=== PATIENT | female | born 1995 | race Caucasian/White ===

== ENCOUNTER 2017-03-20 08:32 | Emergency (ER) | payer OTHER ==
[~2017-03-20] VITALS: Ht 162.6 cm; Wt 50.3 kg
[2017-03-20 08:42] VITALS: BP 105/69
--- NOTE | 2017-03-20 08:46 | NUR ---
Patient to bed 07.
--- NOTE | 2017-03-20 09:02 | NUR ---
PATIENT LEFT WITHOUT BEING SEEN BY DR. HUNTER. NO FURTHER CARE PROVIDED FOR PATIENT.
== END 2017-03-20 09:02 | disposition left against medical advice (07) ==
LOC: MED 08:32
CPT/HCPCS: 99281

== ENCOUNTER 2019-07-05 02:20 | Emergency (ER) | payer OTHER ==
[~2019-07-05] VITALS: Ht 162.6 cm; Wt 52.2 kg
[2019-07-05 02:26] VITALS: BP 130/86
--- NOTE | 2019-07-05 02:45 | NUR ---
24 YO F BIB SELF PRESENTS TO ED C/O 04/01 TOOTHACHE TO LEFT LOWER MOLAR. MOUTH SWELLING NOTED. PT STATES "I THINK IT IS INFECTED". DENIES FEVER/CHILLS. -- PT AWAKE, A/O X 4. CALM, COOPERATIVE. ANSWERS QUESTIONS IN CLEAR, COMPLETE SENTENCES. BEHAVIOR AGE APPROPRIATE. -- SKIN PINK, WARM, DRY. BREATHING EVEN, UNLABORED. PMH-- DENIES RX-- DENIES
--- NOTE | 2019-07-05 03:14 | NUR ---
DR. FELIPE BEDSIDE EVALUATING PT
[2019-07-05] MEDS ORDERED: AMOXICILLIN 500 MG CAP PO ONE (03:15)
[2019-07-05] MEDS ORDERED: MORPHINE SULFATE 2 MG/ML SYR IM ONE (03:15)
[2019-07-05 03:41] VITALS: BP 130/86
--- NOTE | 2019-07-05 03:41 | NUR ---
Patient discharged with v/s stable. Written and verbal after care instructions given and explained. Patient alert, oriented and verbalized understanding of instructions. Ambulatory with steady gait. All questions addressed prior to discharge. ID band removed. Patient advised to follow up with PMD. Rx of Amoxicillin, Tramadol and Motrin given. Patient educated on indication of medication including possible reaction and side effects. Opportunity to ask questions provided and answered.
== END 2019-07-05 03:41 | disposition home or self-care (01) ==
LOC: MED 02:20
DX: K04.7 Periapical abscess without sinus (principal); I10 Essential (primary) hypertension; R00.0 Tachycardia, unspecified
CPT/HCPCS: 96372; 99283; J2270

== ENCOUNTER 2019-11-08 00:04 | Emergency (ER) | payer OTHER ==
[~2019-11-08] VITALS: Ht 162.6 cm; Wt 54.4 kg
[2019-11-08 00:10] VITALS: BP 118/75
--- NOTE | 2019-11-08 00:13 | NUR ---
TO LOBBY A/W BED AMBULATORY
[2019-11-08 02:31] VITALS: BP 118/75
--- NOTE | 2019-11-08 02:31 | NUR ---
PATIENT LEFT WITHOUT BEING SEEN BY DR. CONTEH. NO FURTHER CARE PROVIDED FOR PATIENT.
--- NOTE | 2019-11-08 02:31 | NUR ---
PT WAS CALLED FROM LOBBY, NO ANSWER, LWBS
== END 2019-11-08 02:31 | disposition left against medical advice (07) ==
LOC: MED 00:04
DX: M79.671 Pain in right foot (principal); Z53.21 Procedure and treatment not carried out due to patient leaving prior to being seen by health care provider
CPT/HCPCS: 73630; 99281

== ENCOUNTER 2020-09-14 15:27 | Emergency (ER) | payer MEDICAID ==
[~2020-09-14] VITALS: Ht 162.6 cm; Wt 52.2 kg
[2020-09-14 15:53] VITALS: BP 123/79
--- NOTE | 2020-09-14 15:55 | NUR ---
PT SENT TO LOBBY TO WAIT FOR AVAILABLE BED.
[2020-09-14] MEDS ORDERED: cefTRIAXone 1,000 MG in LIDOCAINE MPF 1% 2.1 ML IM ONE (16:20)
[2020-09-14] MEDS ORDERED: LIDOCAINE MPF 1% 10 MG/ML VIAL INJ ONE (16:20)
[2020-09-14] MEDS ORDERED: KETOROLAC 60 MG/2 ML VIAL IM ONE ×2 (16:20→17:33)
[2020-09-14] MEDS ORDERED: cefTRIAXone 1,000 MG VIAL ONE (17:32)
[2020-09-14] MEDS ORDERED: LIDOCAINE MPF 1% 5 ML ONE (17:33)
== END 2020-09-14 17:35 | disposition home or self-care (01) ==
LOC: MED 15:27
DX: L02.511 Cutaneous abscess of right hand (principal)
CPT/HCPCS: 10060; 73130; 96372; 99284; J0696; J1885; J2001

== ENCOUNTER 2021-11-21 18:36 | Emergency (ER) | payer MEDICAID ==
[~2021-11-21] VITALS: Ht 162.6 cm; Wt 78.0 kg
[2021-11-21 18:45] VITALS: BP 137/91
--- NOTE | 2021-11-21 19:05 | NUR ---
PT AMBULATED TO ER BED 3
--- NOTE | 2021-11-21 19:23 | NUR ---
LABS AT BEDSIDE
--- NOTE | 2021-11-21 19:27 | NUR ---
26 Y/O FEMALE BIB SELF, C/O BILATERAL EDEMA OF LOWER EXTREMETIES AND HANDS, X2 WKS. PATIENT PRESENTS TO ED WITH NON PITTING EDEMA WITH NO PETECIAE OR ABNORMAL WARMTH. PT STATES SHE GAVE ON THE AND WENT HOME ON THE October AND SINCE THEN SHE HAS HAD THE EDEMA. PT STATES PERIODIC ACHING. DENIES N/V/D; SKIN IS PINK/WARM/DRY; AAOX4 WITH EVEN AND STEADY GAIT; LUNGS CLEAR BL; HR EVEN AND REGULAR; PT DENIES ANY FEVER, CP, SOB, OR COUGH AT THIS TIME; VSS; PATIENT POSITIONED SUPINE FOR COMFORT; BEDRAILS UP X1; BED DOWN. ER MD MADE AWARE OF PT STATUS. DENIES PMH, ALLERGIES, OR RX
--- NOTE | 2021-11-21 19:33 | NUR ---
ULTRASOUND AT BEDSIDE
[2021-11-21 19:36] LABS: BASOPHILS # (AUTO) 0.3 K/uL (0.00-0.22); BASOPHILS % (AUTO) 4.9 % (0.0-2.0); EOSINOPHILS # (AUTO) 0.4 K/uL (0-0.4); EOSINOPHILS % (AUTO) 6.1 % (0.0-4.0); HEMATOCRIT 33.4 % (36-48); HEMOGLOBIN 10.9 g/dL (12.0-16.0); LYMPHOCYTES # (AUTO) 2.1 K/uL (2.5-16.5); LYMPHOCYTES % (AUTO) 35.3 % (20.5-51.1); MEAN CORPUSCULAR HEMOGLOBIN 27 pg (27-31); MEAN CORPUSCULAR HGB CONC 33 g/dL (33-37); MEAN CORPUSCULAR VOLUME 82.1 fL (80-94); MONOCYTES # (AUTO) 0.2 K/uL (0.8-1.0); NEUTROPHILS % (AUTO) 49.7 % (42.2-75.2); PLATELET COUNT (AUTO) 362 K/uL (140-450); RED BLOOD CELL COUNT(AUTO) 4.07 MIL/uL (4.20-5.40); RED CELL DISTRIBUTION WIDTH 14.6 % (11.6-13.7)
[2021-11-21 20:00] LABS: ALBUMIN 3.1 g/dL (3.4-5.0); ANION GAP 11.3 (8-16); CARBON DIOXIDE 27.8 mmol/L (21-32); POTASSIUM 4.1 mmol/L (3.5-5.1); TOTAL BILIRUBIN 0.2 mg/dL (0.0-1.0)
[2021-11-21 21:08] VITALS: BP 137/91
--- NOTE | 2021-11-21 21:08 | NUR ---
Patient discharged with v/s stable. Written and verbal after care instructions given and explained. Patient verbalized understanding. Ambulatory with steady gait. All questions addressed prior to discharge. Advised to follow up with PMD. VSS, A/OX4, AMBULATORY, UNLABORED BREATHING, AND CALM DEMEANOR.
== END 2021-11-21 21:08 | disposition home or self-care (01) ==
LOC: MED 18:36
DX: O90.89 Other complications of the puerperium, not elsewhere classified (principal); R60.0 Localized edema
CPT/HCPCS: 36415; 80053; 83880; 85025; 93970; 99285; Q0092

== ENCOUNTER 2023-02-13 16:50 | Emergency (ER) | payer MEDICAID ==
[~2023-02-13] VITALS: Ht 162.6 cm; Wt 73.9 kg
[2023-02-13 17:05] VITALS: BP 121/69
[2023-02-13] MEDS ORDERED: ONDANSETRON 4 MG/2 ML VIAL IVP ONE (17:30)
[2023-02-13] MEDS ORDERED: NACL 0.9% 1,000 ML IV SCH (17:30)
[2023-02-13] MEDS ORDERED: FAMOTIDINE 20 MG/2 ML VIAL IVP ONE (17:50)
[2023-02-13 18:01] LABS: BASOPHILS % (AUTO) 0.4 % (0.0-2.0); EOSINOPHILS # (AUTO) 0.2 K/uL (0-0.4); EOSINOPHILS % (AUTO) 2.4 % (0.0-4.0); HEMATOCRIT 36.1 % (36-48); HEMOGLOBIN 12.5 g/dL (12.0-16.0); LYMPHOCYTES # (AUTO) 1.5 K/uL (2.5-16.5); LYMPHOCYTES % (AUTO) 19.9 % (20.5-51.1); MEAN CORPUSCULAR HEMOGLOBIN 30 pg (27-31); MEAN CORPUSCULAR HGB CONC 35 g/dL (33-37); MEAN CORPUSCULAR VOLUME 86.3 fL (80-94); MONOCYTES # (AUTO) 0.4 K/uL (0.8-1.0); MONOCYTES % (AUTO) 5.3 % (1.7-9.3); NEUTROPHILS # (AUTO) 5.3 K/uL (1.8-7.7); PLATELET COUNT (AUTO) 191 K/uL (140-450); RED BLOOD CELL COUNT(AUTO) 4.19 MIL/uL (4.20-5.40); RED CELL DISTRIBUTION WIDTH 13.5 % (11.6-13.7); WHITE BLOOD COUNT (AUTO) 7.3 K/uL (4.8-10.8)
[2023-02-13 18:19] LABS: ANION GAP 8.5 (8-16); CARBON DIOXIDE 27.8 mmol/L (21-32); POTASSIUM 4.3 mmol/L (3.5-5.1)
[2023-02-13 18:20] LABS: CREATININE 0.6 mg/dL (0.6-1.3)
[2023-02-13] MEDS ORDERED: DOXY1TCP PO ×3 (19:14→19:20)
[2023-02-13] MEDS ORDERED: ACET-10509 PO (19:14)
[2023-02-13] MEDS ORDERED: FAMO-90 PO (19:14)
--- NOTE | 2023-02-13 20:00 | NUR ---
RESTING IN BED WITH EYES CLOSED, RESPIRATIONS REGULAR AND UNLABORED. FLUID BOLUS NEAR COMPLETION.
[2023-02-13 20:30] VITALS: BP 121/69
--- NOTE | 2023-02-13 20:30 | NUR ---
Patient discharged with v/s stable. Written and verbal after care instructions given and explained. Patient alert, oriented and verbalized understanding of instructions. Ambulatory with steady gait. All questions addressed prior to discharge. ID band removed. Patient advised to follow up with PMD. Rx of PEPCID, TYLENOL, DICLEGIS given. Patient educated on indication of medication including possible reaction and side effects. Opportunity to ask questions provided and answered.
== END 2023-02-13 20:30 | disposition home or self-care (01) ==
LOC: MED 16:50
DX: O21.9 Vomiting of pregnancy, unspecified (principal); O26.891 Other specified pregnancy related conditions, first trimester; R10.13 Epigastric pain; Z79.899 Other long term (current) drug therapy; Z3A.01 Less than 8 weeks gestation of pregnancy
CPT/HCPCS: 36415; 80048; 84702; 85025; 96361; 96374; 96375; 99284; J2405; J3490; J7030

== ENCOUNTER 2023-11-14 09:00 | Emergency (ER) | payer MEDICAID ==
[~2023-11-14] VITALS: Ht 162.6 cm; Wt 59.0 kg
[2023-11-14 09:00] VITALS: O2SAT 100
[~2023-11-14 09:00] MED LIST: ACET-10509 PO; DOXY1TCP PO; FAMO-90 PO
[2023-11-14 09:11] VITALS: BP 111/87; PULSE 135; RESP 23; TEMP 99.8; O2SAT 100
[2023-11-14] MEDS ORDERED: NACL 0.9% 1,000 ML IV SCH (09:25)
[2023-11-14] MEDS ORDERED: KETOROLAC 30 MG/ML VIAL IVP ONE (09:40)
[2023-11-14 10:06] LABS: BASOPHILS % (AUTO) 0.2 % (0.0-2.0); EOSINOPHILS % (AUTO) 0.1 % (0.0-4.0); HEMATOCRIT 36.2 % (36-48); HEMOGLOBIN 11.7 g/dL (12.0-16.0); LYMPHOCYTES # (AUTO) 1.3 K/uL (2.5-16.5); LYMPHOCYTES % (AUTO) 6.7 % (20.5-51.1); MEAN CORPUSCULAR HEMOGLOBIN 26 pg (27-31); MEAN CORPUSCULAR HGB CONC 32 g/dL (33-37); MEAN CORPUSCULAR VOLUME 79.3 fL (80-94); MONOCYTES # (AUTO) 1.1 K/uL (0.8-1.0); MONOCYTES % (AUTO) 5.3 % (1.7-9.3); NEUTROPHILS # (AUTO) 17.6 K/uL (1.8-7.7); NEUTROPHILS % (AUTO) 87.7 % (42.2-75.2); RED BLOOD CELL COUNT(AUTO) 4.56 MIL/uL (4.20-5.40); RED CELL DISTRIBUTION WIDTH 18.4 % (11.6-13.7); WHITE BLOOD COUNT (AUTO) 20.1 K/uL (4.8-10.8)
[2023-11-14 10:16] LABS: ANION GAP 11.3 (8-16); CALCIUM 9.1 mg/dL (8.5-10.1); CARBON DIOXIDE 26.7 mmol/L (21-32); CREATININE 0.9 mg/dL (0.6-1.3)
[2023-11-14 10:24] LABS: ALBUMIN 3.6 g/dL (3.4-5.0); TOTAL BILIRUBIN 0.5 mg/dL (0.0-1.0)
[2023-11-14] MEDS: KETOROLAC 60 MG/2 ML VIAL IM ONE (10:34)
[2023-11-14 10:52] LABS: PLATELET COUNT (AUTO) 394 K/uL (140-450)
[2023-11-14 11:49] VITALS: BP 136/73; PULSE 117; RESP 23; TEMP 99.8
[2023-11-14] MEDS ORDERED: CIPR500T4 PO (12:02)
[2023-11-14] MEDS ORDERED: IBUP-2213 PO (12:03)
[2023-11-14 18:38] VITALS: O2SAT 100
== END 2023-11-14 12:06 | disposition home or self-care (01) ==
LOC: MED 09:00
DX: N39.0 Urinary tract infection, site not specified (principal); Z79.899 Other long term (current) drug therapy; Z98.890 Other specified postprocedural states
CPT/HCPCS: 36415; 80048; 80076; 81002; 81025; 83690; 85025; 93005; 96372; 99285; J1885

== ENCOUNTER 2024-01-02 20:39 | Emergency (ER) | payer MEDICAID ==
[~2024-01-02] VITALS: Ht 162.6 cm; Wt 64.0 kg
[~2024-01-02 20:39] MED LIST changes: +CIPR500T4 PO; +IBUP-2213 PO
[2024-01-02 21:36] VITALS: BP 133/95; PULSE 94; RESP 14; TEMP 97.2; O2SAT 100
[2024-01-02 22:54] LABS: APPEARANCE,URINE CLEAR (CLEAR); BILIRUBIN,URINE NEGATIVE (NEGATIVE); BLOOD, URINE NEGATIVE (NEGATIVE); COLOR,URINE YELLOW (YELLOW); LEUKOCYTE ESTERASE ,URINE TRACE (NEGATIVE); NITRITE, URINE NEGATIVE (NEGATIVE); PROTEIN,URINE NEGATIVE (NEGATIVE); UGLUCOSE NEGATIVE (NEGATIVE); UROBILINOGEN,URINE 0.2 EU/dL (0.2 - 1)
[2024-01-02 23:01] LABS: BACTERIA,URINE 10-30 (MOD) /HPF (None Seen); MUCUS,URINE 1+ /LPF (None Seen); RBC,URINE 0-5 /HPF (0-5); SQUAMOUS EPITHELIAL CELL,UR 4-10 (MOD) /LPF (0-3 (FEW))
== END 2024-01-02 23:00 | disposition left against medical advice (07) ==
LOC: MED 20:39
DX: R30.9 Painful micturition, unspecified (principal); Z53.21 Procedure and treatment not carried out due to patient leaving prior to being seen by health care provider
CPT/HCPCS: 81001; 81025; 87086; 87186; 99281